=== PATIENT | female | born 1945 | race Caucasian/White ===

== ENCOUNTER 2016-11-09 09:21 | Emergency (ER) | payer MEDICARE ==
[2016-11-09] MEDS ORDERED: NS 0.9% 1000 ML* 1,000 ML IV ONE (09:42)
[2016-11-09] MEDS ORDERED: Morphine INJ* 4 MG/ML 1 ML SYRINGE IV ONE ×2 (09:42→12:17)
--- NOTE | 2016-11-09 10:50 | RAD ---
INDICATION: Traumatic fracture left femur COMPARISON: None TECHNIQUE: AP, lateral, and oblique views were obtained. FINDINGS: Multiple images representing 2 views show a angulated fracture of the distal metadiaphyseal portion of the left femur with 30 degrees of angular deformity. No other fractures are evident. There is soft tissue swelling with mild deformity. There is osteoarthritis about the knee. IMPRESSION: COMMINUTED, ANGULATED, DISTAL METADIAPHYSEAL FRACTURE OF THE LEFT FEMUR.
--- NOTE | 2016-11-09 10:52 | RAD ---
HISTORY: Fall, tibial pain COMPARISONS: None VIEWS: 2, Frontal and lateral views of the left foreleg FINDINGS: BONE DENSITY: Normal. BONES: There is no displaced fracture. JOINTS: There is no arthropathy. ALIGNMENT: There is no dislocation. SOFT TISSUES: Unremarkable. OTHER FINDINGS: None. IMPRESSION: NO ACUTE OSSEOUS INJURY. IF SYMPTOMS PERSIST, RECOMMEND REPEAT IMAGING.
[2016-11-09 10:57] LABS: Hematocrit 41 % (35-47); Hemoglobin 13.6 g/dl (12.0-16.0); Mean Corpuscular HGB Conc 33 g/dl (31-36); Mean Corpuscular Hemoglobin 29 pg (27-31); Mean Corpuscular Volume 88 fL (80-97); Mean Platelet Volume 8 um3 (7.4-10.4); Red Blood Count 4.65 10^6/ul (4.0-5.4); Red Cell Distribution Width 14 % (10.5-15); White Blood Count 6.4 10^3/ul (3.5-10.8)
--- NOTE | 2016-11-09 10:58 | RAD ---
Indication: Fall with LEFT femur fracture. Comparison: No relevant prior exams available on the [facility]. Technique: Supine dual energy AP chest 1026 hours. Report: Accounting for superimposed soft tissues with large body habitus the lungs and pleural spaces are grossly clear. Upper normal heart size. Unremarkable central pulmonary vasculature. IMPRESSION: Limited portable supine chest without gross evidence for acute intrathoracic disease.
[2016-11-09 11:12] LABS: Albumin 3.4 g/dL (3.2-5.2); BUN/Creatinine Ratio 19.5 (8-20); Calcium 8.9 mg/dL (8.6-10.3); EGFR African American 82.8 (>60); EGFR Non-African American 64.4 (>60); Globulin 3.8 g/dL (2-4); Potassium 3.5 mmol/L (3.5-5.0); Total Bilirubin 0.6 mg/dL (0.2-1.0); Total Protein 7.2 g/dL (6.4-8.9)
--- NOTE | 2016-11-09 11:41 | ED ---
Jose, Doctor,Paula, scribed for Migel Ricks MD on 11/09/16 at 0930 . Lower Extremity - HPI Summary HPI Summary: 71 year old female [facility] c/o pain in the left knee after tripping on the sidewalk this morning. She reports pain in the left thigh that radiates down through the left knee. She was unable to ambulate or move. Her pain is exacerbated with movement, positioning, and pressure; she reports comfort when lying on her right side. She denies any CP, SOB, neck/collarbone pain, back pain , or pain on the right side. Pt is diabetic and has a PMHx of arthritis in her knee. She has no history of a broken hip, but does have a plate in place below the right knee. Her PCP is Dr. Stanton. Pt came in on a backboard and was removed. There was no evidence of head trauma or neck pain. - History of Current Complaint Chief Complaint: EDExtremityLower Stated Complaint: FALL Hx Obtained From: Patient Mechanism Of Injury: Fall From A Standing Position Onset of Pain: Immediate Onset/Duration: Still Present Timing: Constant Associated Signs And Symptoms: Positive: Bruising, Knee Pain. Negative: Fever, Abdominal Pain Aggravating Factor(s): Ambulation, Movement, Weight Bearing, Other - pressure Able to Bear Weight: No - Allergies/Home Medications Allergies/Adverse Reactions: Allergies Allergy/AdvReac Type Severity Reaction Status Date / Time Penicillins Allergy Unknown Verified 11/09/16 09:37 Reaction Details PMH/Surg Hx/FS Hx/Imm Hx Endocrine/Hematology History: Reports: Hx Diabetes Musculoskeletal History: Reports: Hx Arthritis Infectious Disease History: No - Family History Known Family History: Positive: Diabetes - Social History Lives: With Family Alcohol Use: None Substance Use Type: Reports: None Smoking Status (MU): Never Smoked Tobacco Review of Systems Negative: Fever Negative: Chest Pain Negative: Shortness Of Breath Musculoskeletal: Negative - neck/collarbone pain, back pain, pain on the right side Positive: Other - pain in upper left thigh and left knee All Other Systems Reviewed And Are Negative: Yes Physical Exam - Summary Physical Exam Summary: General appearance: mild obesity, mild distress HEENT: no michaels's sign, no raccoon sign, PERRL, no drainage Neck: neck supple, no reproducible pain Chest: normal respiratory effort Cardiovascular: RRR, good color, warmth, and capillary refill in extremities, pulses normal Abdomen: soft, non-tender, obese, ostomy bag in place Musculoskeletal: no reproducible pain over thoracic/lumbar spine, tenderness over left hip, left mid to lower femur, marked ecchymosis noted. Able to flex left knee with decreased range. Ecchymosis noted in the knee in the proximal tibial region. No pain or deformities noted in right leg. Injury isolated to left leg. Note: pt's left leg shorter than the right. Skin: skin intact, no open fractures Neurological/Psychiatric: good fine motor coordination, sensation intact to light touch distally, cranial nerves II-XII grossly intact, appropriate judgment and insight, oriented to time, place and person, normal mood and affect Triage Information Reviewed: Yes Vital Signs On Initial Exam: Initial Vitals Temp Pulse Resp BP Pulse Ox 98.1 F 70 20 168/84 97 11/09/16 09:32 11/09/16 09:32 11/09/16 09:32 11/09/16 09:32 11/09/16 09:32 Vital Signs Reviewed: Yes Diagnostics - Vital Signs Vital Signs Temp Pulse Resp BP Pulse Ox 11/09/16 11:30 75 155/69 99 11/09/16 11:00 69 153/73 90 11/09/16 10:01 20 11/09/16 09:32 98.1 F 70 20 168/84 97 - Laboratory Lab Results: Lab Results 11/09/16 11/09/16 11/09/16 Range/Units 10:46 10:46 10:46 WBC 6.4 (3.5-10.8) 10^3/ul RBC 4.65 (4.0-5.4) 10^6/ul Hgb 13.6 (12.0-16.0) g/dl Hct 41 (35-47) % MCV 88 (80-97) fL MCH 29 (27-31) pg MCHC 33 (31-36) g/dl RDW 14 (10.5-15) % Plt Count 168 (150-450) 10^3/ul MPV 8 (7.4-10.4) um3 Neut % (Auto) 74.1 (38-83) % Lymph % (Auto) 16.9 L (25-47) % [place] % (Auto) 7.1 (1-9) % Eos % (Auto) 1.6 (0-6) % Baso % (Auto) 0.3 (0-2) % Absolute Neuts (auto) 4.8 (1.5-7.7) 10^3/ul Absolute Lymphs (auto) 1.1 (1.0-4.8) 10^3/ul Absolute Monos (auto) 0.5 (0-0.8) 10^3/ul Absolute Eos (auto) 0.1 (0-0.6) 10^3/ul Absolute Basos (auto) 0 (0-0.2) 10^3/ul Absolute Nucleated RBC 0 10^3/ul Nucleated RBC % 0 INR (Anticoag Therapy) 1.01 (0.89-1.11) Sodium 137 (133-145) mmol/L Potassium 3.5 (3.5-5.0) mmol/L Chloride 104 (101-111) mmol/L Carbon Dioxide 27 (22-32) mmol/L Anion Gap 6 (2-11) mmol/L BUN 17 (6-24) mg/dL Creatinine 0.87 (0.51-0.95) mg/dL Est GFR ( Amer) 82.8 (>60) Est GFR (Non-Af Amer) 64.4 (>60) BUN/Creatinine Ratio 19.5 (8-20) Glucose 202 H (70-100) mg/dL Calcium 8.9 (8.6-10.3) mg/dL Total Bilirubin 0.60 (0.2-1.0) mg/dL AST 17 (13-39) U/L ALT 16 (7-52) U/L Alkaline Phosphatase 71 (34-104) U/L Troponin I 0.00 (<0.04) ng/mL Total Protein 7.2 (6.4-8.9) g/dL Albumin 3.4 (3.2-5.2) g/dL Globulin 3.8 (2-4) g/dL Albumin/Globulin Ratio 0.9 L (1-3) Blood Type Antibody Screen 11/09/16 Range/Units 10:46 WBC (3.5-10.8) 10^3/ul RBC (4.0-5.4) 10^6/ul Hgb (12.0-16.0) g/dl Hct (35-47) % MCV (80-97) fL MCH (27-31) pg MCHC (31-36) g/dl RDW (10.5-15) % Plt Count (150-450) 10^3/ul MPV (7.4-10.4) um3 Neut % (Auto) (38-83) % Lymph % (Auto) (25-47) % [place] % (Auto) (1-9) % Eos % (Auto) (0-6) % Baso % (Auto) (0-2) % Absolute Neuts (auto) (1.5-7.7) 10^3/ul Absolute Lymphs (auto) (1.0-4.8) 10^3/ul Absolute Monos (auto) (0-0.8) 10^3/ul Absolute Eos (auto) (0-0.6) 10^3/ul Absolute Basos (auto) (0-0.2) 10^3/ul Absolute Nucleated RBC 10^3/ul Nucleated RBC % INR (Anticoag Therapy) (0.89-1.11) Sodium (133-145) mmol/L Potassium (3.5-5.0) mmol/L Chloride (101-111) mmol/L Carbon Dioxide (22-32) mmol/L Anion Gap (2-11) mmol/L BUN (6-24) mg/dL Creatinine (0.51-0.95) mg/dL Est GFR ( Amer) (>60) Est GFR (Non-Af Amer) (>60) BUN/Creatinine Ratio (8-20) Glucose (70-100) mg/dL Calcium (8.6-10.3) mg/dL Total Bilirubin (0.2-1.0) mg/dL AST (13-39) U/L ALT (7-52) U/L Alkaline Phosphatase (34-104) U/L Troponin I (<0.04) ng/mL Total Protein (6.4-8.9) g/dL Albumin (3.2-5.2) g/dL Globulin (2-4) g/dL Albumin/Globulin Ratio (1-3) Blood Type B Negative Antibody Screen Pending Result Diagrams: 11/09/16 10:46 04/27/17 10:46 Lab Statement: Any lab studies that have been ordered have been reviewed, and results considered in the medical decision making process. - Radiology Femur X-Ray Radiology Interpretation Completed By: Radiologist - IMPRESSION: COMMINUTED, ANGULATED, DISTAL METADIAPHYSEAL FRACTURE OF THE LEFT FEMUR. Lower Extremity X-Ray Radiology Interpretation Completed By: Radiologist - IMPRESSION: NO ACUTE OSSEOUS INJURY. IF SYMPTOMS PERSIST, RECOMMEND REPEAT IMAGING. Chest X-Ray Radiology Interpretation Completed By: Radiologist - IMPRESSION: Limited portable supine chest without gross evidence for acute intrathoracic disease. - EKG 1049 EKG Rhythm: Sinus Bradycardia EKG Interpretation: Poor R-Wave progression, Normal [place], No STEMI Re-Evaluation - Re-Evaluation First Eval Re-Evaluation Time: 10:51 Comment: Informed pt about femur fracture; waiting to hear from Dr. Munoz ( Orthopedist) regarding treatment plan Second Eval Re-Evaluation Time: 10:57 Comment: Informed pt that Dr. Munoz recommended pt be transfered to [place] as she requires a trauma surgeon. Lower Extremity Course/Dx - Course Course Of Treatment: 929: Pt came in on a backboard and was removed. There was no evidence of head trauma or neck pain. Assessment/Plan: Chief Complaint: left lower extremity pain. Femur X-Ray shows fractured, displaced distal left femur. Pt will be transferred to [facility] as Dr. Munoz (Orthopedist) recommends; pt requires a trauma surgeon. - Diagnoses Provider Diagnoses: Femoral distal fracture - Physician Notifications Discussed Care of Patient With: 1055: Consult with Dr. Munoz (Orthopedist). Recommended transfer to [facility]. 1104: Discussed care of pt with Dr. Ohara ( Emergency) at [facility]. He agrees to accept pt to ER. Reason For Transfer: Specialist unable to manage this patient. - pt requires the service of a trauma orthopedist - Critical Care Time Critical Care Time: 30-74 min - 30 minutes Discharge - Discharge Plan Condition: Stable Disposition: TRANS HIGHER LVL OF CARE FAC Referrals: Marya Pulliam MD [Primary Care Provider] - The documentation as recorded by the Doctor alex Tahera accurately reflects the service I personally performed and the decisions made by me, Migel Ricks MD.
[2016-11-09 11:45] LABS: Urine Bacteria 1+ (Absent); Urine Bilirubin Negative (Negative); Urine Glucose 2+(150 mg/dL) (Negative); Urine Nitrite Positive (Negative)
[2016-11-09] MEDS ORDERED: Morphine INJ* 4 MG/ML 1 ML SYRINGE ONE (12:19)
[2016-11-09 12:22] VITALS: BP 146/74
== END 2016-11-09 11:42 | disposition short-term general hospital (02) ==
LOC: ED 09:21
DX: S72.492A Other fracture of lower end of left femur, initial encounter for closed fracture (principal); W18.09XA Striking against other object with subsequent fall, initial encounter; Y92.480 Sidewalk as the place of occurrence of the external cause; Z88.0 Allergy status to penicillin; E11.9 Type 2 diabetes mellitus without complications
CPT/HCPCS: 36415; 71010; 80053; 81003; 81015; 84484; 85025; 85610; 86850; 86900; 86901; 87077; 87086; 87186; 93005; 96360; 96374; 96376; 99284; J2270